=== PATIENT | female | born 1950 | race Two or more races ===

== ENCOUNTER 2022-03-07 13:18 | Emergency (ER) | payer OTHER, MEDICAID ==
[~2022-03-07] VITALS: Ht 162.6 cm; Wt 45.4 kg
[2022-03-07 16:17] LABS: Basophils # (auto) 0.1 10 ^3/uL (0-0.2); Basophils % (auto) 0.8 % (0.0-2.0); Eosinophils # (auto) 0.2 10 ^3/uL (0-0.8); Eosinophils % (auto) 2.1 % (0.0-7.0); Hematocrit 26.9 % (36.0-46.0); Hemoglobin 8.9 g/dL (12.2-16.2); Lymphocytes # (auto) 1.7 10 ^3/uL (0.4-5.4); Lymphocytes % (auto) 14.9 % (10.0-50.0); Mean Corpuscular Hemoglobin 30.2 pg (28.0-32.0); Mean Corpuscular Volume 91.5 fL (80.0-100.0); Monocytes # (auto) 1.1 10 ^3/uL (0-1.3); Monocytes % (auto) 9.4 % (0.0-12.0); Neutrophils # (auto) 8.3 10 ^3/uL (1.6-8.6); Neutrophils % (auto) 72.8 % (37.0-80.0); Nucleated Red Blood Cells % 0.1 %; Red Blood Cells 2.94 10^6/uL (4.0-5.20); Red Cell Distribution Width 17.3 % (11.8-14.3); White Blood Cell 11.5 10^3/uL (4.4-10.8)
[2022-03-07 16:40] LABS: BUN/Creatinine Ratio 8.1; Calcium 8.5 mg/dL (8.5-10.1); Potassium 3.2 mmol/L (3.5-5.1)
[2022-03-07 16:43] LABS: Bilirubin, Total 0.6 mg/dL (0.2-1.0); Total Protein 7.1 g/dL (6.4-8.2)
[2022-03-07] MEDS ORDERED: cefTRIAXone 1GM/50ML D5W 50 ML IV ONE (17:15)
[2022-03-07 19:50] VITALS: BP 68/30
== END 2022-03-07 21:31 | disposition left against medical advice (07) ==
LOC: ER 13:18 → EDBD 13:18 → ER 21:31
DX: N18.6 End stage renal disease (principal); E87.6 Hypokalemia; R77.8 Other specified abnormalities of plasma proteins; Z99.2 Dependence on renal dialysis
CPT/HCPCS: 36415; 71045; 80053; 84484; 85025; 93005; 96365; 99285; J0696